=== PATIENT | male | born 1995 | race Caucasian/White ===

== ENCOUNTER 2021-06-04 11:25 | Emergency (ER) | payer SELFPAY ==
--- NOTE | 2021-06-04 11:45 | ED.MALEGU ---
HPI - Male Genitourinary General Chief complaint: Urogenital-Male Stated complaint: Urinary Frequency and Pain Time Seen by Provider: 06/04/21 11:50 Source: patient, RN notes reviewed and old records reviewed Mode of arrival: ambulatory Limitations: no limitations History of Present Illness HPI Narrative: 25-year-old male who presents to [facility] with complaints of urinary frequency and burning for the past 2 days with history of past UTI. Patient denies any supra pubic or flank pain, denies any visible blood in urine, denies any testicle pain or swelling. Patient denies any penis drainage or lesions denies any concern for STD's. Patient has not taken any AZO or OTC medication for his urinary symptoms. Patient denies any known fevers, chills, or sweats or any nausea or vomiting. MD Complaint: dysuria Onset (ago): day(s) (2) Duration: constant Related Data Home Medications Medication Instructions Recorded Confirmed baclofen 20 mg PO PRN PRN 06/04/21 06/04/21 multivit with min-folic acid 1 tablet PO DAILY 06/04/21 06/04/21 [Adult One Daily Multivitamin] Allergies Allergy/AdvReac Type Severity Reaction Status Date / Time amoxicillin Allergy Mild Hives Verified 06/04/21 11:52 Review of Systems Review of Systems: CONSTITUTIONAL: Denies fever, chills, or sweats. EYES: Denies visual changes, redness, or discharge. ENT: Denies rhinorrhea, congestion, sore throat, or otalgia. CARDIOVASCULAR: Denies chest pain, palpitations, or edema. RESPIRATORY: Denies cough or dyspnea. GASTROINTESTINAL: Denies abdominal pain, nausea, vomiting, or diarrhea. GENITOURINARY: Positive dysuria, urinary frequency no visible hematuria. SKIN: Denies rash or itching. MUSCULOSKELETAL: Denies back pain, joint pain, or myalgia. NEUROLOGIC: Denies headache, numbness, or weakness. PSYCHIATRIC: Positive for history of anxiety or depression. All systems reviewed & are unremarkable except as noted in HPI and below PMFSH Past Medical History Medical History (Updated 06/04/21 @ 12:30 by Mya Zapien NP) Depression Lumbar back pain UTI (urinary tract infection) Surgical History Surgical History (Updated 06/04/21 @ 12:24 by Mya L. Rupali, REHAB DEPARTMENT MANAGER) No history of previous surgery Social History Social History (Updated 06/04/21 @ 12:24 by Mya Zapien NP) Smoking status: Never smoker Alcohol intake: current Alcohol use details: social Substance use: never Living arrangements: with roommate(s) Gender identity (if verbalized by the patient): Male Comments At time of signature, agree with nursing past medical, surgical, social and family history. There is no relevant family history pertinent to the presenting complaint Exam Narrative: GENERAL: Well-appearing, well-nourished, and in no acute distress. HEAD: Normocephalic, atraumatic. EYES: PERRLA and EOMI. ENT: Nares clear, no rhinorrhea or epistaxis. Mucous membranes moist.TM's normal with good light reflex, throat pink with no lesions or exudates, no tonsil swelling NECK: Supple. no lymphadenopathy CHEST: Clear to auscultation. No respiratory distress.SAO2 100% on room air HEART: Regular rate and rhythm. No murmur heard. Normal peripheral pulses. ABDOMEN: Soft, nontender to palpation, nondistended, normal active bowel sounds.No CVA tenderness noted on exam EXTREMITIES: Normal range of motion. No edema. SKIN: Warm, dry, no rash. NEURO: No focal deficits. Alert and oriented x3. Course Course Level of Care: Express Care Visit Vital Signs Vital signs: Vital Signs Temperature 36.7 C 06/04/21 11:46 Pulse Rate 95 06/04/21 11:46 Respiratory Rate 18 06/04/21 11:46 Blood Pressure 127/77 06/04/21 11:46 Pulse Oximetry 100 06/04/21 11:46 Temperature 36.7 C 06/04/21 11:46 Pulse Rate 95 06/04/21 11:46 Respiratory Rate 18 06/04/21 11:46 Blood Pressure 127/77 06/04/21 11:46 Pulse Oximetry 100 06/04/21 11:46 MDM - Male Genitourinary
[2021-06-04 11:46] VITALS: BP 127/77; PULSE 95; RESP 18; TEMP 36.7; O2SAT 100
== END 2021-06-04 12:18 | disposition home or self-care (01) ==
PROVIDERS: Emergency Provider Registered Nurse
DX: N39.0 Urinary tract infection, site not specified (principal)
CPT/HCPCS: 81003; 87086; 99213; G0463